=== PATIENT | male | born 1930 | race Caucasian/White ===

== ENCOUNTER 2017-04-03 17:19 | Inpatient (IN) | payer OTHER, BC ==
[~2017-04-03] VITALS: Ht 175.3 cm; Wt 78.2 kg
[2017-04-03 17:38] VITALS: Ht 175.3 cm; Wt 78.2 kg
[2017-04-03 18:54] LABS: BASOPHIL % 0.2 % (0-2); PLATELET COUNT 141 x10^3mcL (130-400); RED CELL DISTRIBUTION WIDTH 13.8 % (11.5-14.5)
[2017-04-03 19:23] LABS: T3 TOTAL 0.8 ng/mL
[2017-04-03 19:24] LABS: microscopic required? YES; urine erythrocyte TRACE (NEGATIVE)
[2017-04-03 19:49] LABS: CK-MB 6.7 ng/mL (0-3.6)
[2017-04-03 19:52] LABS: ERYTHROCYTE SED RATE 49 mm/hr (0-20)
[2017-04-03 19:55] LABS: FREE T4 1.71 ng/dL (0.76-1.46); FREE THYROXINE INDEX 4.5 ug/dL (1.4-4.5); T4(THYROXINE) 11.3 ug/dL (4.7-13.3)
[2017-04-03 20:33] LABS: CARBON DIOXIDE 25.2 mmol/L (21-32); CHLORIDE SERUM 102 mmol/L (98-107); CREATININE SERUM 1.3 mg/dL (0.7-1.3); GLUCOSE SERUM 109 mg/dL (74-106); POTASSIUM SERUM 3.9 mmol/L (3.5-5.1); SODIUM SERUM 139 mmol/L (136-145)
[2017-04-03 20:45] LABS: ALKALINE PHOSPHATASE 93 U/L (46-116); ALT/SGPT 40 U/L (16-63); AST/SGOT 71 U/L (15-37); BILIRUBIN TOTAL 0.61 mg/dL (0.20-1.00); TOTAL PROTEIN, SERUM 7.6 g/dL (6.4-8.2)
[2017-04-03 20:50] LABS: ALBUMIN 3.2 g/dL (3.4-5.0)
[2017-04-03 21:14] LABS: C REACTIVE PROTEIN 34.6 mg/dL (<=0.9)
[2017-04-04] VITALS (7 sets, daily range): BP systolic 118–133; BP diastolic 59–84
[2017-04-04] MEDS ORDERED: TESSALON PERLE100 MG PO (00:13)
[2017-04-04] MEDS ORDERED: ZESTRIL5 MG PO (00:13)
[2017-04-04] MEDS ORDERED: TERAZOSIN HCL5 MG PO (00:13)
[2017-04-04] MEDS ORDERED: LEVAQUIN750 MG PO (00:13)
[2017-04-04 03:08] LABS: CHOLESTEROL/HDL RATIO 3.2; MAGNESIUM 2.2 mg/dL (1.8-2.4)
[2017-04-04 08:41] LABS: BASOPHIL % 0.3 % (0-2); PLATELET COUNT 131 x10^3mcL (130-400); RED CELL DISTRIBUTION WIDTH 13.4 % (11.5-14.5)
[2017-04-04 08:44] LABS: CALCIUM 8.1 mg/dL (8.5-10.1); CARBON DIOXIDE 27.3 mmol/L (21-32); CHLORIDE SERUM 105 mmol/L (98-107); CREATININE SERUM 1.1 mg/dL (0.7-1.3); GLUCOSE SERUM 100 mg/dL (74-106); POTASSIUM SERUM 4.3 mmol/L (3.5-5.1); SODIUM SERUM 140 mmol/L (136-145)
[2017-04-05 06:26] VITALS: BP 121/56
[2017-04-05 07:32] LABS: BASOPHIL % 0.2 % (0-2); PLATELET COUNT 136 x10^3mcL (130-400); RED CELL DISTRIBUTION WIDTH 13.3 % (11.5-14.5)
[2017-04-05 07:44] LABS: CALCIUM 7.7 mg/dL (8.5-10.1); CARBON DIOXIDE 24.7 mmol/L (21-32); CHLORIDE SERUM 106 mmol/L (98-107); CREATININE SERUM 1.1 mg/dL (0.7-1.3); GLUCOSE SERUM 112 mg/dL (74-106); POTASSIUM SERUM 3.4 mmol/L (3.5-5.1); SODIUM SERUM 138 mmol/L (136-145)
[2017-04-05 08:50] VITALS: BP 126/57
[2017-04-05 17:20] VITALS: BP 137/62
[2017-04-05 21:32] VITALS: BP 120/56
[2017-04-06 05:23] VITALS: BP 129/63
[2017-04-06 07:39] LABS: BASOPHIL % 0.2 % (0-2); PLATELET COUNT 135 x10^3mcL (130-400); RED CELL DISTRIBUTION WIDTH 13.8 % (11.5-14.5)
[2017-04-06 08:28] LABS: CALCIUM 7.9 mg/dL (8.5-10.1); CHLORIDE SERUM 108 mmol/L (98-107); GLUCOSE SERUM 101 mg/dL (74-106); PHOSPHOROUS 3.2 mg/dL (2.5-4.9); POTASSIUM SERUM 3.7 mmol/L (3.5-5.1); SODIUM SERUM 142 mmol/L (136-145)
[2017-04-06 09:43] VITALS: BP 139/56
[2017-04-06 17:26] VITALS: BP 139/75
[2017-04-06 21:20] VITALS: BP 119/67
[2017-04-07 05:08] VITALS: BP 129/81
[2017-04-07] MEDS ORDERED: VENTOLIN H0.09 MG/A1 INH (11:18)
[2017-04-07] MEDS ORDERED: AZITHROMYCIN250 M1 PO (11:19)
[2017-04-07] MEDS ORDERED: BD LACTINEX1.4 MG PO (11:37)
[2017-04-07 12:46] VITALS: BP 134/75
[2017-04-07 13:10] VITALS: BP 122/73
== END 2017-04-07 15:17 | disposition home health service (06) | DRG 177 ==
LOC: ED 17:19 → DU 04-04 00:06 → MU 04-04 00:06 → DU 04-04 00:40 → MU 04-04 00:41
PROVIDERS: Family Medicine; Family Medicine Sports Medicine; Specialist
DX: J69.0 Pneumonitis due to inhalation of food and vomit (principal); N17.0 Acute kidney failure with tubular necrosis; J96.00 Acute respiratory failure, unspecified whether with hypoxia or hypercapnia; E44.0 Moderate protein-calorie malnutrition; M62.82 Rhabdomyolysis; E86.0 Dehydration; K22.5 Diverticulum of esophagus, acquired; I10 Essential (primary) hypertension; E05.90 Thyrotoxicosis, unspecified without thyrotoxic crisis or storm; N40.0 Benign prostatic hyperplasia without lower urinary tract symptoms; Z68.23 Body mass index [BMI] 23.0-23.9, adult
CPT/HCPCS: 36600; 83880; 84439; 92610; 94150; 97110-GP; J1956; J3370; J3490; J7030; J7620; Q0092; Q9967